=== PATIENT | female | born 1985 | race Caucasian/White ===

== ENCOUNTER 2018-03-12 04:41 | Emergency (ER) | payer OTHER ==
[~2018-03-12] VITALS: Ht 175.3 cm; Wt 77.1 kg
[2018-03-12] MEDS ORDERED: NORCO 5-325 TA1 EACH PO (05:38)
[2018-03-12 05:51] VITALS: BP 164/70
== END 2018-03-12 05:56 | disposition home or self-care (01) ==
LOC: M.ERS 04:41
DX: S93.401A Sprain of unspecified ligament of right ankle, initial encounter (principal); W10.9XXA Fall (on) (from) unspecified stairs and steps, initial encounter; Y93.89 Activity, other specified; Y92.89 Other specified places as the place of occurrence of the external cause; Y99.8 Other external cause status; Z88.2 Allergy status to sulfonamides